=== PATIENT | female | born 1990 | race Two or more races ===

== ENCOUNTER 2018-10-08 21:57 | Emergency (ER) | payer BC, OTHER ==
[~2018-10-08] VITALS: Ht 167.6 cm; Wt 49.0 kg
[~2018-10-08 21:57] MED LIST: DEXT30TA10 PO
--- NOTE | 2018-10-08 22:08 | NUR ---
PT BIBSELF FROM HOME WITH C/O BLUE DISCOLORATION ON THE R SIDE OF THE LIP, C/O OF SOB AND GEN ABD PAIN. PT AAOX4, RESPIRATIONS EVEN AND UNLABORED, NO SOB, NAD NOTED, VSS, AWAITING ER PROVIDER DEBBIEAL
--- NOTE | 2018-10-08 22:10 | NUR ---
URINE COLLECTED AND SENT TO LAB
[2018-10-08] MEDS ORDERED: LORAZEPAM 1 MG TABLET PO ONE (22:30)
[2018-10-08] MEDS ORDERED: LORAZEPAM 1 MG TABLET ONE (22:33)
[2018-10-08 22:46] LABS: BASOPHILS # (AUTO) 0.1 /CMM (0.0-0.2); HEMATOCRIT 32 % (33-45); HEMOGLOBIN 10.3 g/dL (11.5-14.8); LYMPHOCYTES # (AUTO) 2.5 /CMM (0.8-4.8); LYMPHOCYTES % (AUTO) 23.5 % (20.0-44.0); MEAN CORPUSCULAR HGB CONC 32 g/dl (31.0-36.0); MEAN CORPUSCULAR VOLUME 82 fL (82-100); MONOCYTES # (AUTO) 0.8 /CMM (0.1-1.30); MONOCYTES % (AUTO) 7.4 % (2.0-12.0); NEUTROPHILS % (AUTO) 67.1 % (43.0-81.0); PLATELET COUNT (AUTO) 501 /CMM (150-450); WHITE BLOOD COUNT (AUTO) 10.5 K/uL (4.3-11.0)
[2018-10-08 22:55] LABS: CALCIUM, SERUM 8.4 mg/dL (8.5-10.1); CREATININE 0.7 mg/dL (0.6-1.3)
--- NOTE | 2018-10-08 22:58 | NUR ---
ARIK MAR AT
[2018-10-08 23:07] LABS: ALBUMIN 3.6 g/dL (3.4-5.0); BILIRUBIN,DIRECT 0.1 mg/dL (0.0-0.2); BILIRUBIN,TOTAL 0.2 mg/dL (0.2-1.0); TOTAL PROTEIN, SERUM 6.7 g/dL (6.4-8.2)
--- NOTE | 2018-10-08 23:19 | NUR ---
PT SIGNED WAIVER FOR XRAY. WAIVER IN CHART
[2018-10-08 23:22] LABS: APPEARANCE,URINE Clear (CLEAR); BILIRUBIN,URINE Negative (NEGATIVE); BLOOD, URINE Moderate Ery/uL (NEGATIVE); COLOR,URINE Yellow (YELLOW); KETONES,URINE 15 (NEGATIVE); LEUKOCYTE ESTERASE ,URINE Negative (NEGATIVE); NITRITE, URINE Positive (NEGATIVE); PH,URINE 5.5 (5.0-8.0); PROTEIN,URINE Negative (NEGATIVE); UGLUCOSE Negative (NEGATIVE); UROBILINOGEN,URINE 0.2 EU/dL (0.2)
[2018-10-08 23:45] LABS: BACTERIA,URINE Many /HPF (None Seen); RBC,URINE 0-2 /HPF (0-2); SQUAMOUS EPITHELIAL CELL,UR Few /HPF (None Seen)
--- NOTE | 2018-10-09 00:42 | NUR ---
Patient discharged to home in stable condition. Written and verbal after care instructions given. Patient verbalizes understanding of instruction. AMBULATORY STEADY GAIT.
[2018-10-09 00:43] VITALS: BP 116/80
== END 2018-10-09 00:45 | disposition home or self-care (01) ==
LOC: ER 22:04
DX: S00.531A Contusion of lip, initial encounter (principal); F41.9 Anxiety disorder, unspecified; R10.31 Right lower quadrant pain; R10.32 Left lower quadrant pain; F90.9 Attention-deficit hyperactivity disorder, unspecified type; R22.43 Localized swelling, mass and lump, lower limb, bilateral; Z98.890 Other specified postprocedural states; X58.XXXA Exposure to other specified factors, initial encounter; Y93.89 Activity, other specified; Y92.89 Other specified places as the place of occurrence of the external cause; Y99.8 Other external cause status
CPT/HCPCS: 36415; 71045-TC; 80048-TC; 80076-TC; 81000-TC; 83690-TC; 84703-TC; 85025-TC; 85730-TC; 87086-TC; 87186-TC; 93970-TC

== ENCOUNTER 2022-01-25 10:37 | Emergency (ER) | payer SELFPAY ==
--- NOTE | 2022-01-25 11:59 | NUR ---
ANXIETY, NAUSEA AND VOMITING, DIARRHEA AND CRAMPS X1 WEEK. VITALS WITHIN NORMAL LIMITS. BREATHING EVEN AND UNALBORED. WARM BLANKET PROVIDED FOR COMFORT.
[2022-01-25] MEDS ORDERED: IV NS 0.9% 1,000 ML IV ONE (12:00)
[2022-01-25] MEDS ORDERED: ONDANSETRON HCL/PF - ER 4 MG/2 ML VIAL IV ONE (12:00)
[2022-01-25] MEDS ORDERED: LORAZEPAM INJ 2 MG/ML VIAL IV ONE (12:00)
[2022-01-25] MEDS ORDERED: ONDANSETRON HCL/PF 4 MG/2 ML VIAL ONE (12:04)
[2022-01-25] MEDS ORDERED: LORAZEPAM INJ 2 MG/ML VIAL ONE (12:04)
[2022-01-25 12:09] LABS: BASOPHILS % (AUTO) 0.4 % (0.0-2.0); HEMATOCRIT 33 % (33-45); HEMOGLOBIN 10.7 g/dL (11.5-14.8); LYMPHOCYTES # (AUTO) 1.1 K/uL (0.8-4.8); LYMPHOCYTES % (AUTO) 13.6 % (20.0-44.0); MEAN CORPUSCULAR HGB CONC 32 g/dl (31.0-36.0); MEAN CORPUSCULAR VOLUME 78 fL (82-100); MONOCYTES # (AUTO) 0.4 K/uL (0.1-1.30); MONOCYTES % (AUTO) 5.1 % (2.0-12.0); NEUTROPHILS # (AUTO) 6.3 K/uL (1.8-8.9); NEUTROPHILS % (AUTO) 80.9 % (43.0-81.0); PLATELET COUNT (AUTO) 589 K/uL (150-450); RED BLOOD CELL COUNT(AUTO) 4.31 MIL/uL (4.0-5.2); WHITE BLOOD COUNT (AUTO) 7.8 K/uL (4.3-11.0)
--- NOTE | 2022-01-25 12:12 | NUR ---
XRAY AT BEDSIDE
--- NOTE | 2022-01-25 12:20 | NUR ---
URINE COLLECTED AND SENT
--- NOTE | 2022-01-25 12:20 | NUR ---
PATIENT SIGNED DISCLAIMER THAT SHE IS NOT
--- NOTE | 2022-01-25 12:21 | NUR ---
CXR DONE AT BEDSIDE
[2022-01-25 12:45] LABS: ALBUMIN 3.9 g/dL (3.4-5.0); BILIRUBIN,DIRECT 0.1 mg/dL (0.0-0.2); BILIRUBIN,TOTAL 0.2 mg/dL (0.2-1.0); CALCIUM, SERUM 9.4 mg/dL (8.5-10.1); CREATININE 0.7 mg/dL (0.6-1.3); TOTAL PROTEIN, SERUM 7.3 g/dL (6.4-8.2)
[2022-01-25 12:55] LABS: BILIRUBIN,URINE SMALL (NEGATIVE); COLOR,URINE YELLOW (YELLOW); LEUKOCYTE ESTERASE ,URINE TRACE (NEGATIVE); NITRITE, URINE NEGATIVE (NEGATIVE); PROTEIN,URINE 30 mg/dl (NEGATIVE); UGLUCOSE NEGATIVE (NEGATIVE); UROBILINOGEN,URINE 0.2 EU/dL (0.2)
[2022-01-25 13:21] LABS: BACTERIA,URINE Many /HPF (None Seen); WBC,URINE 0-2 /HPF (0-3)
[2022-01-25] MEDS ORDERED: HYDR-500 PO (14:17)
--- NOTE | 2022-01-25 15:12 | NUR ---
Patient discharged to home in stable condition. Written and verbal after care instructions given. Patient verbalizes understanding of instruction.
--- NOTE | 2022-01-25 15:12 | NUR ---
IV CANNULA REMOVED
[2022-01-25 15:13] VITALS: BP 104/71
== END 2022-01-25 15:14 | disposition home or self-care (01) ==
LOC: ER 10:52
DX: F41.9 Anxiety disorder, unspecified (principal); R11.2 Nausea with vomiting, unspecified; R06.02 Shortness of breath; Z98.890 Other specified postprocedural states
CPT/HCPCS: 36415; 71045; 80048; 80076; 81001; 83690; 83735; 84703; 85025; 87086; 93005; 96361; 96374; 96375; 99285; J2060; J2405 ×2; J7030

== ENCOUNTER 2022-03-13 20:31 | Emergency (ER) | payer MEDICAID ==
[~2022-03-13] VITALS: Ht 167.6 cm; Wt 56.7 kg
[~2022-03-13 20:31] MED LIST changes: +CLONAZEPAM; -DEXT30TA10 PO; +METO-295 PO
--- NOTE | 2022-03-13 21:00 | NUR ---
BIBRA 88 FOR N/V. PATIENT ALERT AND ORIENTED X3. AMBULATORY WITH NON LABORED BREATHING IN CHAIR AWIATING MD WOOD.
[2022-03-13] MEDS ORDERED: ONDANSETRON HCL/PF 4 MG/2 ML VIAL ONE (21:15)
[2022-03-13] MEDS: IV NS 0.9% 1,000 ML BAG IV ONE (21:17)
[2022-03-13] MEDS: ONDANSETRON HCL/PF 4 MG/2 ML VIAL IVP ONE (21:18)
--- NOTE | 2022-03-13 21:23 | NUR ---
PT AMBULATED TO BATHROOM, STEADY GAIT NOTED
--- NOTE | 2022-03-13 21:40 | NUR ---
PT UNABLE TO PROVIDE URINE AT THIS TIME
[2022-03-13 22:08] LABS: BASOPHILS # (AUTO) 0.1 K/uL (0.0-0.2); BASOPHILS % (AUTO) 2.1 % (0.0-2.0); EOSINOPHILS % (AUTO) 1.1 % (0.0-6.0); HEMATOCRIT 33 % (33-45); HEMOGLOBIN 10.3 g/dL (11.5-14.8); LYMPHOCYTES # (AUTO) 2.2 K/uL (0.8-4.8); LYMPHOCYTES % (AUTO) 36.5 % (20.0-44.0); MEAN CORPUSCULAR HGB CONC 31 g/dl (31.0-36.0); MEAN CORPUSCULAR VOLUME 74 fL (82-100); MONOCYTES # (AUTO) 0.3 K/uL (0.1-1.30); MONOCYTES % (AUTO) 5.4 % (2.0-12.0); NEUTROPHILS # (AUTO) 3.3 K/uL (1.8-8.9); NEUTROPHILS % (AUTO) 54.9 % (43.0-81.0); PLATELET COUNT (AUTO) 513 K/uL (150-450); RED BLOOD CELL COUNT(AUTO) 4.49 MIL/uL (4.0-5.2)
[2022-03-13] MEDS ORDERED: FAMOTIDINE/PF INJ 20 MG/2 ML VIAL IV ONE ×2 (22:16→22:17)
[2022-03-13] MEDS ORDERED: LORAZEPAM INJ 2 MG/ML VIAL ONE (22:16)
[2022-03-13] MEDS: FAMOTIDINE/PF INJ 20 MG/2 ML VIAL IV ONE (22:20)
[2022-03-13 22:21] LABS: CALCIUM, SERUM 8.6 mg/dL (8.5-10.1); CREATININE 0.9 mg/dL (0.6-1.3); POTASSIUM 4.2 mmol/L (3.5-5.1)
[2022-03-13] MEDS: LORAZEPAM INJ 2 MG/ML VIAL IV ONE (22:21)
[2022-03-13 22:33] LABS: BILIRUBIN,DIRECT 0.1 mg/dL (0.0-0.2); BILIRUBIN,TOTAL 0.1 mg/dL (0.2-1.0); TOTAL PROTEIN, SERUM 7.6 g/dL (6.4-8.2)
--- NOTE | 2022-03-13 22:48 | NUR ---
URINE SAMPLE COLLECTED AND SENT TO LAB
[2022-03-13] MEDS ORDERED: ONDA4TAB5 PO (22:51)
--- NOTE | 2022-03-13 22:59 | NUR ---
IV removed. Catheter intact and site benign. Pressure and 4x4 applied to site. No bleeding noted.
[2022-03-13 23:00] VITALS: BP 127/76
--- NOTE | 2022-03-13 23:00 | NUR ---
Patient discharged to home in stable condition. Written and verbal after care instructions given. Patient verbalizes understanding of instruction.
[2022-03-13 23:36] LABS: BILIRUBIN,URINE NEGATIVE (NEGATIVE); COLOR,URINE YELLOW (YELLOW); LEUKOCYTE ESTERASE ,URINE NEGATIVE (NEGATIVE); NITRITE, URINE NEGATIVE (NEGATIVE); PROTEIN,URINE NEGATIVE (NEGATIVE); UGLUCOSE NEGATIVE (NEGATIVE); UROBILINOGEN,URINE 0.2 EU/dL (0.2)
== END 2022-03-13 23:00 | disposition home or self-care (01) ==
LOC: ER 20:32
DX: R11.2 Nausea with vomiting, unspecified (principal); Z98.82 Breast implant status; Z79.899 Other long term (current) drug therapy
CPT/HCPCS: 36415; 71045; 80048; 80076; 80307; 81003; 83690; 84702; 84703; 85025; 96361; 96374; 96375; 99284; J2060; J2405; J3490; J7030